=== PATIENT | male | born 1975 | race Hispanic/Latino ===

== ENCOUNTER 2019-01-02 07:07 | Outpatient (CLI) | payer BC ==
--- NOTE | 2019-01-02 08:35 | MRI ---
MRI Lower Ext Jt Lt WO Con History: M 23.92 internal derangement of left knee Comparison: None. Findings: Medial meniscus: Radial oblique tear posterior horn medial meniscus extending to the root a ttachment. This extends from the free edge to the intermediate zone. There is also an undersurface nondisplaced flap tear posterior horn body junction medial meniscus. Lateral meniscus: Intact ACL, PCL, MCL, LCL are all intact. Extensor mechanism: Quadriceps tendon, patella, and patellar tendon are intact. Mild prepatellar burs itis. Cartilage: Patellofemoral compartment: Intact Medial compartment: Intact Lateral compartment: Intact Muscles: Muscle signal and bulk is normal. No significant joint effusion. Impression: 1. Nondisplaced radial oblique tear posterior horn medial meniscus extending from the free edge to th e intermediate zone and involving the root attachment. 2. Nondisplaced undersurface flap tear posterior horn body junction medial meniscus. 3. Mild prepatellar bursitis.
== END 2019-01-02 07:08 | disposition home or self-care (01) ==
LOC: SCSMRI 07:07
PROVIDERS: ATTEND Orthopaedic Surgery
DX: M23.92 Unspecified internal derangement of left knee (principal); S83.242A Other tear of medial meniscus, current injury, left knee, initial encounter; M70.42 Prepatellar bursitis, left knee

== ENCOUNTER 2019-01-12 07:30 | Outpatient (CLI) | payer BC ==
[2019-01-12 12:11] LABS: #Basophils 0.1 thou/uL (0.0-0.2); #Eosinphils 0.3 thou/uL (0.0-0.7); #Lymphocytes 1.8 thou/uL (1.20-3.40); #Monocytes 0.5 thou/uL (0.11-0.59); #Neutrophils 3.7 thou/uL (1.40-6.50); %Eosinophils 5.2 % (0.0-10.0); %Lymphocytes 28.1 % (21.0-51.0); %Monocytes 7.4 % (0.0-10.0); %Neutrophils 58.4 % (42.0-75.0); Mean Corpuscular HGB CONC 35.1 g/dL (32.0-36.0); Mean Corpuscular Hemoglobin 32.3 pg (27.0-31.0); Mean Corpuscular Volume 92.1 fL (78.0-98.0); Mean Platelet Volume 8.4 fL (7.4-10.4); Platelet Count 206 thou/uL (130-400); RBC Distribution Width 11.2 % (11.5-14.5); Red Blood Cell (RBC) Count 4.63 mill/uL (4.70-6.10); White Blood Cell (WBC) Count 6.3 thou/uL (4.8-10.8)
--- NOTE | 2019-01-12 17:33 | EKG ---
Test Reason : Blood Pressure : / mmHG Vent. Rate : 061 BPM Atrial Rate : 061 BPM P-R Int : 154 ms QRS Dur : 082 ms QT Int : 394 ms P-R-T Axes : 018 014 -03 degrees QTc Int : 396 ms Normal sinus rhythm Possible Anterior infarct , age undetermined Abnormal ECG No previous ECGs available Confirmed by DR. Theo PAREKH ([id number]) on 01/12/2019 5:32:33 PM Referred By: YANI Confirmed By:DR. Theo PAREKH
== END 2019-01-12 07:31 | disposition home or self-care (01) ==
LOC: LABBT 07:30
PROVIDERS: ATTEND Orthopaedic Surgery
DX: Z01.818 Encounter for other preprocedural examination (principal); S83.242D Other tear of medial meniscus, current injury, left knee, subsequent encounter
CPT/HCPCS: 85025; 93005; 93010

== ENCOUNTER 2019-01-19 12:14 | Day surgery (SDC) | payer BC ==
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
[2019-01-19] MEDS ORDERED: Lidocaine 1% PF 5 ML VIAL ONE (13:50)
[2019-01-19] MEDS ORDERED: Dexamethasone 20 MG/5 ML VIAL ONE (13:50)
[2019-01-19] MEDS ORDERED: Ketorolac Tromethamine 30 MG/ML VIAL ONE (13:50)
[2019-01-19] MEDS ORDERED: PROPOFOL 200 MG/20 ML VIAL ONE (13:50)
[2019-01-19] MEDS ORDERED: Ondansetron PF 4 MG/2 ML Vial ONE (13:50)
[2019-01-19] MEDS ORDERED: Bupivacaine HCl 0.5%/Epinephrine 1:200,000/PF 30 ml Vial ONE (14:41)
[2019-01-19] MEDS ORDERED: Fentanyl 100 MCG/2 ML VIAL ONE ×4 (15:10→16:52)
[2019-01-19] MEDS ORDERED: HYDROcodone/Acetaminophen 5/325 mg Tablet ONE (17:47)
--- NOTE | 2019-01-19 22:05 | OP ---
DATE OF PROCEDURE: 01/19/2019 ANESTHESIA: General. PREOPERATIVE DIAGNOSIS: Medial meniscal tear, left knee. POSTOPERATIVE DIAGNOSIS: Medial meniscal tear, left knee. PROCEDURE PERFORMED: Arthroscopy of left knee with partial medial meniscectomy. OPERATIVE FINDINGS: Examination under anesthesia revealed the knee to be stable and arthroscopy of the patellofemoral joint was normal. There was a complex tear of the posterior horn of the medial meniscus with a small flap component. In the midportion of the meniscus, there was also degeneration within the body and meniscus, but no carmela tear. There were some minimal degenerative changes in the weightbearing surface of the medial femoral condyle. ACL was intact. Lateral meniscus and lateral compartment were normal. DESCRIPTION OF PROCEDURE: After satisfactory anesthesia was induced in the supine position, the patient was placed in a leg kaur and prepped and draped in routine manner. The left leg was elevated and exsanguinated with an Esmarch bandage and the tourniquet inflated to 300 mmHg. Tera arthroscope was introduced through the anterolateral portal, probed through the anteromedial portal and inflow and outflow accomplished through the scope using a [employer] arthroscopy pump. Arthroscopy was carried out and the above findings were noted. All findings were documented with video printer and hard copies were made. The posterior horn of the medial meniscus was debrided with use of basket forceps and motorized shaver, and that the posterior horn and tear were ellipsed and saucerized and contoured to a smooth surface. The meniscus was probed and found to be stable. The scope was introduced into the medial portal and all compartments were visualized and no additional pathology found. The knee was copiously irrigated through the scope and all instruments were then withdrawn. 20 mL of 0.5% Marcaine with epinephrine was then instilled into the knee joint and additional 10 mL was injected about the portal sites. Portal sites were closed with 3-0 nylon and a sterile bulky compressive dressing was applied, and the tourniquet deflated after 27 minutes. The foot promptly pinked up and the patient was awakened, taken to the recovery room in stable condition. There were no apparent intraoperative complications. The estimated blood loss was negligible. The patient will be discharged home in satisfactory condition, instructed on ice, elevation and use of crutches and home exercise program with Physical Therapy Department. He was given written wound care instructions and a prescription for Wishek 7.5 for pain, 24 tablets. He will be rechecked in my office in 10 to 14 days or sooner if there are any problems prior to that time. Job ID: [id number]
== END 2019-01-19 18:19 | disposition home or self-care (01) ==
LOC: SDC 12:14
PROVIDERS: ATTEND Orthopaedic Surgery
PROC: 0SBD4ZZ Excision of Left Knee Joint, Percutaneous Endoscopic Approach (ICD-10-PCS; principal; 2019-01-19)
DX: S83.232A Complex tear of medial meniscus, current injury, left knee, initial encounter (principal); F17.210 Nicotine dependence, cigarettes, uncomplicated; Z79.899 Other long term (current) drug therapy; W10.8XXA Fall (on) (from) other stairs and steps, initial encounter; Y92.65 Oil rig as the place of occurrence of the external cause; Y99.0 Civilian activity done for income or pay
CPT/HCPCS: J0131; J0670; J0690; J1100; J1885; J2001; J2405; J2704; J3010